=== PATIENT | male | born 2000 | race Caucasian/White ===

== ENCOUNTER 2021-09-08 10:03 | Emergency (ER) | payer OTHER, SELFPAY ==
[2021-09-08 10:04] VITALS: BP 131/82; PULSE 72; RESP 16; TEMP 37.6; O2SAT 100
[2021-09-08 10:28] VITALS: BP 131/82; PULSE 72; RESP 16; TEMP 37.6; O2SAT 100
--- NOTE | 2021-09-08 10:35 | ED.GENADULT ---
HPI - General Adult General Chief complaint: Skin/Abscess/Foreign Body Stated complaint: Facial Swelling Time Seen by Provider: 09/08/21 10:06 Source: patient Mode of arrival: ambulatory Limitations: no limitations History of Present Illness HPI narrative: 21 y/o male. PMHx none reported. Presents to [facility] today with acute complaints of rash located to his left lower leg, upper right extremity, and RT facial for the past 1 week. Pt reports to have been outside 'cutting down trees' prior to manifestation onset. No fever, chills, myalgia. No oral or mucous membrane involvement. No wheezing or dyspnea. He denies new household changes or family members in home w/similar issues. He is w/o additional acute c/o illness upon PE. Related Data Home Medications Medication Instructions Recorded Confirmed No Home Medications 09/08/21 09/08/21 Allergies Allergy/AdvReac Type Severity Reaction Status Date / Time No Known Allergies Allergy Verified 09/08/21 10:22 Review of Systems Review of Systems: CONSTITUTIONAL: Denies fever, chills, sweats. EYES: Denies visual changes, redness, discharge. ENT: Denies rhinorrhea, congestion, sore throat, otalgia. CARDIOVASCULAR: Denies chest pain, palpitations, edema. RESPIRATORY: Denies dyspnea, wheezing, cough GASTROINTESTINAL: Denies abdominal pain, nausea, vomiting, diarrhea. GENITOURINARY: Denies dysuria, hematuria, abnormal discharge SKIN: Positive rash & itching LLE, RUE, RT Facial. MUSCULOSKELETAL: Denies acute back pain, joint pain, or myalgia. NEUROLOGIC: Denies numbness, or focal weakness. PSYCHIATRIC: Denies anxiety or depression. All systems reviewed & are unremarkable except as noted in HPI and below Exam Narrative: GENERAL: This is a well-nourished, well-developed adult, in no apparent distress. HEAD: normocephalic, atraumatic. EYES: PERRL. Sclera clear/white. No ocular or eye involvement. EARS: External ears normal, auditory canals clear and without drainage, TMs normal. NOSE: External nose normal. Nares patent. THROAT: Mucous membranes moist, posterior pharynx clear. No exudates. NECK: Neck supple, non-tender without lymphadenopathy, masses or thyromegaly. CARDIOVASCULAR: Regular rate and rhythm without murmurs, gallops, or rubs. RESPIRATORY: Clear to auscultation. Breath sounds equal bilaterally. No wheezes, rales, or rhonchi. GASTROINTESTINAL: Abdomen soft, non-tender, nondistended. Bowel sounds are active. No guarding. SKIN: warm, intact. With a fine red and raised rash located to left lower leg, RT upper arm, and RT cheek. No eye involvement. Areas are patchy with signs of pruritic changes and superficial patient induced scratching. No open wounds, discharge. No fluctuance. No suspicious lesions. Good texture and turgor. No oral or mucous membrane involvement. NEURO: Alert, active, and age appropriate. No focal neurologic deficits. EXTREMITIES: Negative. Course Vital Signs Vital signs: Vital Signs Temperature 37.6 C 09/08/21 10:04 Pulse Rate 72 09/08/21 10:04 Respiratory Rate 16 09/08/21 10:04 Blood Pressure 131/82 09/08/21 10:04 Pulse Oximetry 100 09/08/21 10:04 Temperature 37.6 C 09/08/21 10:28 Pulse Rate 72 09/08/21 10:28 Respiratory Rate 16 09/08/21 10:28 Blood Pressure 131/82 09/08/21 10:28 Pulse Oximetry 100 09/08/21 10:28 Medical Decision Making [facility] Narrative Medical decision making narrative: -Suspect Contact Dermatitis, considering history and information presented in HPI. -He does exhibit some mild RT cheek involvement, uncomplicated, without additional oral or ocular issues. -Will cover with dual systemic and topical steroid effects, as well as Clindamycin for early bacterial cellulitic pathogens with RT face areas. -OP skin care and medication instructions reviewed. -PCP F/U 1 WK. -ER W/Emergent health status changes or worsening. Pt agrees. Differential Diagnosis Differen
== END 2021-09-08 10:36 | disposition home or self-care (01) ==
PROVIDERS: Emergency Provider Nurse Practitioner Adult Health
DX: L03.211 Cellulitis of face (principal)
CPT/HCPCS: 99213; G0463

== ENCOUNTER 2022-05-03 11:02 | Emergency (ER) | payer OTHER, SELFPAY ==
[2022-05-03 11:08] VITALS: BP 138/80; PULSE 79; RESP 20; TEMP 36.4; O2SAT 100
--- NOTE | 2022-05-03 11:30 | ED.EAR ---
HPI - Ear Problem General Chief complaint: Ear Stated complaint: Ear Pain Time Seen by Provider: 05/03/22 11:31 Source: patient Mode of arrival: ambulatory Limitations: no limitations History of Present Illness HPI Narrative: 22-year-old male presented for complaint of left ear pain for about 3 days. He has taken ibuprofen for pain and Sudafed. Endorses tinnitus and pain is described as sharp and intermittent. Denies drainage, headache, dizziness, fevers or chills. Endorses he tested positive for COVID 4 days ago. MD Complaint: ear pain Related Data Allergies Allergy/AdvReac Type Severity Reaction Status Date / Time No Known Allergies Allergy Verified 05/03/22 11:30 Review of Systems Review of Systems: CONSTITUTIONAL: Denies malaise, chills, or fever. EYES: Denies visual changes, redness, or discharge. ENT: Denies rhinorrhea, congestion, sinus pain, and sore throat. Reports ear pain CARDIOVASCULAR: Denies chest pain, palpitations, or edema. RESPIRATORY: Denies cough or dyspnea. SKIN: Denies rash or itching. MUSCULOSKELETAL: Denies myalgia. NEUROLOGIC: Denies headache. All systems reviewed & are unremarkable except as noted in HPI and below PMFSH Comments At time of signature, agree with nursing past medical, surgical, social and family history. There is no relevant family history pertinent to the presenting complaint Exam Narrative: GENERAL: Well-appearing EYES: conjunctivae clear ENT: Nares clear. Mucous membranes moist. Left TM erythematous and bulging with fluid levels, with erythematous canal, no purulent drainage noted. Right TM pearly thakur with normal light reflex; no tragal tenderness. NECK: Supple. No lymphadenopathy CHEST: Clear to auscultation, breath sounds equal. No wheezing, rhonchi, rales, or stridor HEART: Regular rate and rhythm. No murmur heard. SKIN: Warm, dry, no rash. NEURO: Alert and oriented x3. PSYCH: Normal mood and affect Course Course Emergency Course: Patient is aware of diagnosis, understands and agrees to treatment plan. Anticipatory guidance given. Patient agrees to follow-up as directed and is aware of reasons to seek care at the emergency department. Portions of this record may have been created with voice recognition software Level of Care: Express Care Visit Vital Signs Vital signs: Vital Signs Temperature 97.5 F L 05/03/22 11:08 Pulse Rate 79 07/03/22 11:08 Respiratory Rate 20 05/03/22 11:08 Blood Pressure 138/80 05/03/22 11:08 Pulse Oximetry 100 05/03/22 11:08 Oxygen Delivery Room Air 05/03/22 11:08 Temperature 97.5 F L 05/03/22 11:08 Pulse Rate 79 05/03/22 11:08 Respiratory Rate 20 05/03/22 11:08 Blood Pressure 138/80 05/03/22 11:08 Pulse Oximetry 100 05/03/22 11:08 Oxygen Delivery Room Air 05/03/22 11:08 Reviewed Medical Decision Making MDM Narrative Medical decision making narrative: Advised supportive treatments and antibiotic for AOM. Patient is non-toxic appearing and is in no distress. Patient is appropriate for outpatient treatment and follow-up. Differential Diagnosis Differential Diagnosis: allergic rhinitis, upper respiratory tract infection, sinusitis, rhinosinusitis, nasopharyngitis, viral pharyngitis, otitis media, otitis externa, eustachian tube dysfunction, foreign body, cerumen impaction. Vital Signs Vital Signs: Vital Signs Temperature 97.5 F L 05/03/22 11:08 Pulse Rate 79 05/03/22 11:08 Respiratory Rate 20 05/03/22 11:08 Blood Pressure 138/80 05/03/22 11:08 Pulse Oximetry 100 05/03/22 11:08 Oxygen Delivery Room Air 05/03/22 11:08 Temperature 97.5 F L 05/03/22 11:08 Pulse Rate 79 05/03/22 11:08 Respiratory Rate 20 05/03/22 11:08 Blood Pressure 138/80 05/03/22 11:08 Pulse Oximetry 100 05/03/22 11:08 Oxygen Delivery Room Air 05/03/22 11:08 Discharge Plan Discharge Clinical Impression: Otitis media Patient Disposition: Home, Self-Care C
== END 2022-05-03 11:42 | disposition home or self-care (01) ==
PROVIDERS: Emergency Provider Nurse Practitioner Family
DX: H66.90 Otitis media, unspecified, unspecified ear (principal)
CPT/HCPCS: 99213; G0463